=== PATIENT | male | born 1975 | race Caucasian/White ===

== ENCOUNTER 2017-05-22 20:51 | Emergency (ER) | payer BC ==
[~2017-05-22] VITALS: Ht 177.8 cm; Wt 96.0 kg
[2017-05-22] MEDS ORDERED: HYDROCODONE/ACETAMINOPHEN 5/325MG TABLET PO ONE (21:15)
[2017-05-23 01:22] VITALS: BP 124/90
== END 2017-05-23 01:23 | disposition home or self-care (01) ==
LOC: ER 20:51
DX: M54.5 Low back pain (principal); F17.200 Nicotine dependence, unspecified, uncomplicated; E11.9 Type 2 diabetes mellitus without complications; I10 Essential (primary) hypertension; W13.2XXA Fall from, out of or through roof, initial encounter; Z88.0 Allergy status to penicillin
CPT/HCPCS: 72100; 72170; 99284

== ENCOUNTER 2020-12-06 05:59 | Emergency (ER) | payer BC, OTHER ==
[~2020-12-06] VITALS: Ht 180.3 cm; Wt 120.0 kg
[2020-12-06] MEDS ORDERED: LORAZEPAM 0.5MG TABLET PO ONE (06:30)
[2020-12-06 06:49] LABS: BASOPHILS % 0.5 % (0.0-2.0); EOSINOPHILS % 0.9 % (0.0-5.0); HEMATOCRIT. 38.8 % (42.0-52.0); HEMOGLOBIN. 12.7 g/dL (14.0-18.0); LYMPHOCYTES % 8.7 % (20.0-50.0); MEAN CORPUSCULAR VOLUME 82.5 fL (80.0-94.0); MEAN PLATELET VOLUME 7.4 fl (7.4-10.4); MONOCYTES % 5.1 % (2.0-8.0); NEUTROPHILS % 84.8 % (40.0-76.0); PLATELET 331 x1000/uL (130-400); RED CELL DISTRIBUTION WIDTH 14.3 % (11.6-14.6)
[2020-12-06 06:54] LABS: CHLORIDE 108 mEq/L (98-107)
[2020-12-06] MEDS ORDERED: ENOXAPARIN 100MG/ML SYR SUBCUT ONE (07:15)
[2020-12-06 09:26] VITALS: BP 128/85
== END 2020-12-06 09:51 | disposition short-term general hospital (02) ==
LOC: ER 05:59 → CANBEDREQ 14:29
DX: I21.4 Non-ST elevation (NSTEMI) myocardial infarction (principal); E11.9 Type 2 diabetes mellitus without complications; Z98.61 Coronary angioplasty status; I10 Essential (primary) hypertension; I25.2 Old myocardial infarction; Z88.0 Allergy status to penicillin; Z20.822 Contact with and (suspected) exposure to COVID-19
CPT/HCPCS: 36415; 71045; 80053; 83880; 84484; 85025; 87426; 96372; 99291; J1650; Z7610

== ENCOUNTER 2020-12-24 10:33 | Inpatient (IN) | payer OTHER ==
[~2020-12-24] VITALS: Ht 180.3 cm; Wt 80.5 kg
[2020-12-24 11:56] LABS: BASOPHILS % 0.8 % (0.0-2.0); EOSINOPHILS % 2.3 % (0.0-5.0); HEMATOCRIT. 40.6 % (42.0-52.0); HEMOGLOBIN. 13.3 g/dL (14.0-18.0); LYMPHOCYTES % 11.5 % (20.0-50.0); MEAN CORPUSCULAR HEMOGLOBIN 27.3 pg (28.0-32.0); MEAN CORPUSCULAR VOLUME 83.4 fL (80.0-94.0); MEAN PLATELET VOLUME 7.7 fl (7.4-10.4); MONOCYTES % 5.3 % (2.0-8.0); NEUTROPHILS % 80.1 % (40.0-76.0); PLATELET 303 x1000/uL (130-400); RED BLOOD CELL COUNT 4.87 mill/uL (4.7-6.1); RED CELL DISTRIBUTION WIDTH 14.9 % (11.6-14.6)
[2020-12-24] MEDS ORDERED: ASPIRIN 81MG TABLET PO ONE (15:00)
[2020-12-24] MEDS ORDERED: ENOXAPARIN 80MG/0.8ML SYR SUBCUT ONE (15:45)
[2020-12-25 01:05] LABS: *AMPHETAMINES SCREEN URINE NEGATIVE (NEGATIVE); *BARBITURATES SCREEN URINE NEGATIVE (NEGATIVE); *BENZODIAZEPINES SCREEN URINE NEGATIVE (NEGATIVE); *COCAINE SCREEN URINE NEGATIVE (NEGATIVE); METHADONE URINE SCREEN NEGATIVE (NEGATIVE); OPIATES URINE SCREEN NEGATIVE (NEGATIVE)
[2020-12-25 01:06] LABS: CANNABINOID URINE SCREEN NEGATIVE (NEGATIVE); PHENCYCLIDINE URINE SCREEN NEGATIVE (NEGATIVE)
[2020-12-25 05:30] VITALS: BP 157/104
[2020-12-25] MEDS ORDERED: HYDR-4135 MT (05:42)
[2020-12-25] MEDS ORDERED: ASPI-1497 MT (05:42)
[2020-12-25] MEDS ORDERED: CLOP-31 MT (05:42)
[2020-12-25] MEDS ORDERED: ONDANSETRON HCL 4MG/2ML INJ IV PRN (06:15)
[2020-12-25] MEDS ORDERED: HYDROCODONE/ACETAMINOPHEN 5/325MG TABLET PO PRN (06:15)
[2020-12-25] MEDS ORDERED: MAGNESIUM/ALUMINUM HYDROXIDE/SIMETHICONE 30ML UDC PO PRN (06:15)
[2020-12-25] MEDS ORDERED: DOCUSATE SODIUM 100MG CAPSULE PO PRN (06:15)
[2020-12-25] MEDS ORDERED: CLONIDINE 0.1MG TABLET PO PRN (06:15)
[2020-12-25] MEDS ORDERED: ACETAMINOPHEN 325MG TABLET PO PRN (06:15)
[2020-12-25] MEDS ORDERED: MORPHINE SULFATE 2 MG/ML CPJ (NOT FOR IM USE) IV PRN (06:15)
[2020-12-25] MEDS: AMLODIPINE 10MG TABLET PO SCH (06:42)
[2020-12-25 08:00] VITALS: BP 155/100
[2020-12-25] MEDS: ASPIRIN 81MG TABLET PO SCH (09:28)
[2020-12-25] MEDS: CLOPIDOGREL 75MG TABLET PO SCH (09:29)
[2020-12-25] MEDS: CARVEDILOL 6.25 MG TABLET PO SCH ×2 (09:29→21:43)
[2020-12-25] MEDS ORDERED: NALOXONE HCL 0.4MG/ML VIAL IV PRN (10:45)
[2020-12-25] MEDS ORDERED: DEXTROSE 50% WATER 50ML SYRINGE IV PRN (11:00)
[2020-12-25] MEDS: BLOOD SUGAR DIAGNOSTIC STRIP TEST SCH ×3 (11:29→21:45)
[2020-12-25 12:00] VITALS: BP 146/95
[2020-12-25] MEDS: INSULIN LISPRO 100 UNITS/ML SUBCUT SCH ×3 (12:36→21:45)
[2020-12-25] MEDS: ENOXAPARIN 80MG/0.8ML SYR SUBCUT SCH ×2 (12:39→21:44)
[2020-12-25 16:00] VITALS: BP 150/95
[2020-12-25 20:30] VITALS: BP 156/109
[2020-12-25] MEDS: ATORVASTATIN CALCIUM 40MG TABLET PO SCH (21:43)
[2020-12-25] MEDS: HYDRALAZINE HCL 50MG TABLET PO SCH (21:44)
[2020-12-25 23:30] VITALS: BP 122/81
[2020-12-26 04:00] VITALS: BP 135/81
[2020-12-26] MEDS: BLOOD SUGAR DIAGNOSTIC STRIP TEST SCH ×4 (06:13→20:27)
[2020-12-26] MEDS: INSULIN LISPRO 100 UNITS/ML SUBCUT SCH ×4 (06:15→20:26)
[2020-12-26 07:54] LABS: BASOPHILS % 1.1 % (0.0-2.0); EOSINOPHILS % 3.2 % (0.0-5.0); HEMATOCRIT. 39.6 % (42.0-52.0); LYMPHOCYTES % 23.8 % (20.0-50.0); MEAN PLATELET VOLUME 7.8 fl (7.4-10.4); MONOCYTES % 8.9 % (2.0-8.0); PLATELET 269 x1000/uL (130-400); RED BLOOD CELL COUNT 4.83 mill/uL (4.7-6.1); RED CELL DISTRIBUTION WIDTH 14.9 % (11.6-14.6)
[2020-12-26 08:00] VITALS: BP 124/78
[2020-12-26 08:04] LABS: CHLORIDE 108 mEq/L (98-107)
[2020-12-26 08:15] LABS: LDL CHOLESTEROL 128 mg/dL (5-100)
[2020-12-26 08:18] LABS: HDL CHOLESTEROL 41 mg/dL (40-59)
[2020-12-26] MEDS: ASPIRIN 81MG TABLET PO SCH (08:32)
[2020-12-26] MEDS: CLOPIDOGREL 75MG TABLET PO SCH (08:33)
[2020-12-26] MEDS: HYDRALAZINE HCL 50MG TABLET PO SCH ×2 (08:33→17:21)
[2020-12-26] MEDS: CARVEDILOL 6.25 MG TABLET PO SCH ×2 (08:33→20:26)
[2020-12-26] MEDS: AMLODIPINE 10MG TABLET PO SCH (08:33)
[2020-12-26 12:00] VITALS: BP 129/83
[2020-12-26] MEDS: ENOXAPARIN 80MG/0.8ML SYR SUBCUT SCH ×2 (12:04→23:37)
[2020-12-26 16:00] VITALS: BP 138/91
[2020-12-26 20:00] VITALS: BP 126/81
[2020-12-26] MEDS: ATORVASTATIN CALCIUM 40MG TABLET PO SCH (20:25)
[2020-12-26 21:24] VITALS: BP 126/81
[2020-12-27] VITALS: BP 129/82
[2020-12-27 04:00] VITALS: BP 129/83
[2020-12-27] MEDS: BLOOD SUGAR DIAGNOSTIC STRIP TEST SCH ×3 (05:40→16:40)
[2020-12-27] MEDS: INSULIN LISPRO 100 UNITS/ML SUBCUT SCH ×3 (06:02→17:43)
[2020-12-27 08:00] VITALS: BP 125/79
[2020-12-27] MEDS ORDERED: VERAPAMIL HCL 2.5 MG/1 ML 2ML VIAL IV ONE (09:29)
[2020-12-27] MEDS ORDERED: LIDOCAINE HCL 1% 30ML VIAL (10MG/ML) ONE (09:29)
[2020-12-27] MEDS ORDERED: NICARDIPINE 100MCG/ML 10ML VIAL (CATH LAB) IV ONE (09:30)
[2020-12-27] MEDS ORDERED: IODIXANOL 320MG/ML 100 ML BOTTLE IV ONE (09:30)
[2020-12-27] MEDS ORDERED: NITROGLYCERIN 50MCG/ML 10ML VIAL (CATH LAB) IV ONE (09:30)
[2020-12-27] MEDS ORDERED: HEPARIN SODIUM 1,000 UNIT/1ML VIAL IV ONE (09:30)
[2020-12-27] MEDS: CLOPIDOGREL 75MG TABLET PO SCH (09:47)
[2020-12-27] MEDS: AMLODIPINE 10MG TABLET PO SCH (09:47)
[2020-12-27] MEDS: ASPIRIN 81MG TABLET PO SCH (09:47)
[2020-12-27] MEDS: CARVEDILOL 6.25 MG TABLET PO SCH (09:47)
[2020-12-27] MEDS: HYDRALAZINE HCL 50MG TABLET PO SCH ×2 (09:47→17:42)
[2020-12-27] MEDS ORDERED: MIDAZOLAM HCL 2 MG/2 ML VIAL ONE ×2 (09:59→10:53)
[2020-12-27] MEDS ORDERED: FENTANYL CITRATE/PF 50MCG/ML 2ML VIAL ONE (09:59)
[2020-12-27] MEDS: ENOXAPARIN 80MG/0.8ML SYR SUBCUT SCH (11:00)
[2020-12-27] MEDS ORDERED: ATROPINE SULFATE 1MG/10ML SYR IV PRN (11:45)
[2020-12-27] MEDS ORDERED: MIDAZOLAM HCL 5 MG/5 ML VIAL ONE (12:32)
[2020-12-27] MEDS ORDERED: FENTANYL CITRATE/PF 50MCG/ML 5ML VIAL ONE (12:32)
[2020-12-27 14:24] VITALS: BP 139/89
[2020-12-27 16:00] VITALS: BP 124/79
[2020-12-27 17:17] VITALS: BP 124/75
== END 2020-12-27 18:20 | disposition home or self-care (01) | DRG 280 ==
LOC: ER 10:33 → MICUSO 15:39 → EDBEDREQ 15:45 → EDBEDREQTM 15:45 → 7EST 12-25 04:06
PROVIDERS: ADMIT Hospitalist; ATTEND Hospitalist
PROC: 4A023N7 Measurement of Cardiac Sampling and Pressure, Left Heart, Percutaneous Approach (ICD-10-PCS; principal; 2020-12-27)
PROC: B211YZZ Fluoroscopy of Multiple Coronary Arteries using Other Contrast (ICD-10-PCS; 2020-12-27)
PROC: 4A033BC Measurement of Arterial Pressure, Coronary, Percutaneous Approach (ICD-10-PCS; 2020-12-27)
DX: I21.4 Non-ST elevation (NSTEMI) myocardial infarction (principal); I50.23 Acute on chronic systolic (congestive) heart failure; I13.0 Hypertensive heart and chronic kidney disease with heart failure and stage 1 through stage 4 chronic kidney disease, or unspecified chronic kidney disease; N17.9 Acute kidney failure, unspecified; I42.9 Cardiomyopathy, unspecified; E11.22 Type 2 diabetes mellitus with diabetic chronic kidney disease; E87.5 Hyperkalemia; E78.5 Hyperlipidemia, unspecified; Z20.822 Contact with and (suspected) exposure to COVID-19; F41.9 Anxiety disorder, unspecified; I16.0 Hypertensive urgency; N18.9 Chronic kidney disease, unspecified; I25.119 Atherosclerotic heart disease of native coronary artery with unspecified angina pectoris; I45.10 Unspecified right bundle-branch block; Z82.49 Family history of ischemic heart disease and other diseases of the circulatory system; Z91.14 Patient's other noncompliance with medication regimen; Z95.5 Presence of coronary angioplasty implant and graft; Z79.82 Long term (current) use of aspirin; Z79.899 Other long term (current) drug therapy
CPT/HCPCS: 36415; 80048; 80053; 80061; 80305; 82962; 83036; 84484; 85025; 85347; 87426; 93306; 93458; 93571; 99291; C1769; C1887; C1893; J1644; J1650; J1815; J2250; J2270; J3010; J3490; Q9967

== ENCOUNTER 2021-08-18 04:53 | Inpatient (IN) | payer OTHER ==
[~2021-08-18] VITALS: Ht 177.8 cm; Wt 89.8 kg
[~2021-08-18 04:53] MED LIST: ASPI-1497 MT; CLOP-31 MT; HYDR-4135 MT
[2021-08-18 06:01] LABS: BASOPHILS % 0.8 % (0.0-2.0); EOSINOPHILS % 1.6 % (0.0-5.0); HEMATOCRIT. 35.2 % (42.0-52.0); HEMOGLOBIN. 11.6 g/dL (14.0-18.0); LYMPHOCYTES % 18.3 % (20.0-50.0); MEAN CORPUSCULAR HEMOGLOBIN 27.7 pg (28.0-32.0); MEAN CORPUSCULAR VOLUME 84.3 fL (80.0-94.0); MEAN PLATELET VOLUME 6.8 fl (7.4-10.4); MONOCYTES % 6.7 % (2.0-8.0); NEUTROPHILS % 72.6 % (40.0-76.0); PLATELET 319 x1000/uL (130-400); RED BLOOD CELL COUNT 4.18 mill/uL (4.7-6.1); RED CELL DISTRIBUTION WIDTH 13.3 % (11.6-14.6)
[2021-08-18 06:22] LABS: CHLORIDE 111 mEq/L (98-107)
[2021-08-18] MEDS ORDERED: DEXTROSE 50% WATER 50ML SYRINGE IV ONE (06:45)
[2021-08-18] MEDS ORDERED: ENOXAPARIN 80MG/0.8ML SYR SUBCUT ONE (06:45)
[2021-08-18] MEDS ORDERED: HYDRALAZINE HCL 100MG TABLET PO SCH (11:45)
[2021-08-18 13:40] VITALS: BP 177/97
[2021-08-18] MEDS ORDERED: GUAIFENESIN 200MG/10ML SUGAR FREE UDC PO PRN (14:15)
[2021-08-18] MEDS ORDERED: DOCUSATE SODIUM 100MG CAPSULE PO PRN (14:15)
[2021-08-18] MEDS ORDERED: MAGNESIUM/ALUMINUM HYDROXIDE/SIMETHICONE 30ML UDC PO PRN (14:15)
[2021-08-18] MEDS ORDERED: CLONIDINE 0.1MG TABLET PO PRN (14:15)
[2021-08-18] MEDS ORDERED: ONDANSETRON HCL 4MG/2ML INJ IV PRN (14:15)
[2021-08-18] MEDS ORDERED: HYDROCODONE/ACETAMINOPHEN 5/325MG TABLET PO PRN (14:15)
[2021-08-18] MEDS ORDERED: ACETAMINOPHEN 325MG TABLET PO PRN (14:15)
[2021-08-18] MEDS ORDERED: MORPHINE SULFATE 2 MG/ML CPJ (NOT FOR IM USE) IV PRN (14:15)
[2021-08-18 14:50] VITALS: BP 147/94
[2021-08-18] MEDS: AMLODIPINE 10MG TABLET PO SCH (14:50)
[2021-08-18] MEDS ORDERED: DEXTROSE 50% WATER 50ML SYRINGE IV PRN (15:30)
[2021-08-18] MEDS ORDERED: NALOXONE HCL 0.4MG/ML VIAL IV PRN (15:45)
[2021-08-18 16:00] VITALS: BP 156/94
[2021-08-18] MEDS: HYDRALAZINE HCL 50MG TABLET PO SCH (17:15)
[2021-08-18] MEDS ORDERED: CARV25TA47 MT (17:17)
[2021-08-18] MEDS ORDERED: ISOS30TA91 MT (17:18)
[2021-08-18] MEDS: INSULIN LISPRO 100 UNITS/ML SUBCUT SCH ×2 (17:33→20:45)
[2021-08-18] MEDS: BLOOD SUGAR DIAGNOSTIC STRIP TEST SCH ×2 (17:33→20:45)
[2021-08-18 20:00] VITALS: BP 152/78
[2021-08-18 20:26] LABS: PROTHROMBIN TIME 11.2 sec (9.6-11.0)
[2021-08-18] MEDS ORDERED: ATORVASTATIN CALCIUM 40MG TABLET PO SCH (21:00)
[2021-08-18] MEDS: ENOXAPARIN 100MG/ML SYR SUBCUT SCH (22:00)
[2021-08-19] VITALS: BP 143/80
[2021-08-19 04:00] VITALS: BP 154/89
[2021-08-19] MEDS: BLOOD SUGAR DIAGNOSTIC STRIP TEST SCH ×2 (05:58→12:56)
[2021-08-19 06:19] LABS: BASOPHILS % 0.8 % (0.0-2.0); EOSINOPHILS % 2.9 % (0.0-5.0); HEMOGLOBIN. 11.9 g/dL (14.0-18.0); LYMPHOCYTES % 32.4 % (20.0-50.0); MEAN CORPUSCULAR HEMOGLOBIN 27.5 pg (28.0-32.0); MEAN CORPUSCULAR VOLUME 83.2 fL (80.0-94.0); MEAN PLATELET VOLUME 7.6 fl (7.4-10.4); MONOCYTES % 8.4 % (2.0-8.0); NEUTROPHILS % 55.5 % (40.0-76.0); PLATELET 328 x1000/uL (130-400); RED BLOOD CELL COUNT 4.32 mill/uL (4.7-6.1); RED CELL DISTRIBUTION WIDTH 13.5 % (11.6-14.6)
[2021-08-19 06:40] LABS: CHLORIDE 108 mEq/L (98-107)
[2021-08-19 06:52] LABS: HDL CHOLESTEROL 35 mg/dL (40-59); LDL CHOLESTEROL 104 mg/dL (5-100)
[2021-08-19] MEDS: INSULIN LISPRO 100 UNITS/ML SUBCUT SCH ×2 (07:50→12:56)
[2021-08-19 08:00] VITALS: BP 147/89
[2021-08-19] MEDS ORDERED: ISOSORBIDE MONONITRATE 30MG TABLET SR 24HR PO SCH (09:00)
[2021-08-19] MEDS ORDERED: CLOPIDOGREL 75MG TABLET PO SCH (09:00)
[2021-08-19] MEDS ORDERED: ASPIRIN 81MG EC TABLET PO SCH (09:00)
[2021-08-19] MEDS: HYDRALAZINE HCL 50MG TABLET PO SCH (09:41)
[2021-08-19] MEDS: AMLODIPINE 10MG TABLET PO SCH (09:42)
[2021-08-19] MEDS: ENOXAPARIN 100MG/ML SYR SUBCUT SCH (09:43)
[2021-08-19 11:25] LABS: *AMPHETAMINES SCREEN URINE NEGATIVE (NEGATIVE); *BARBITURATES SCREEN URINE NEGATIVE (NEGATIVE); *BENZODIAZEPINES SCREEN URINE NEGATIVE (NEGATIVE); *COCAINE SCREEN URINE NEGATIVE (NEGATIVE); CANNABINOID URINE SCREEN NEGATIVE (NEGATIVE); METHADONE URINE SCREEN NEGATIVE (NEGATIVE); OPIATES URINE SCREEN NEGATIVE (NEGATIVE); PHENCYCLIDINE URINE SCREEN NEGATIVE (NEGATIVE)
[2021-08-19 12:00] VITALS: BP 143/77
[2021-08-19 13:13] VITALS: BP 143/77
[2021-08-19] MEDS ORDERED: ENOXAPARIN 100MG/ML SYR SUBCUT SCH (21:00)
== END 2021-08-19 14:50 | disposition home or self-care (01) | DRG 281 ==
LOC: ER 04:53 → 6WST 10:13 → EDBEDREQTM 10:20 → EDBEDREQ 10:20 → ENRESERV 10:37
PROVIDERS: ADMIT Hospitalist; ATTEND Hospitalist
DX: I21.4 Non-ST elevation (NSTEMI) myocardial infarction (principal); I13.0 Hypertensive heart and chronic kidney disease with heart failure and stage 1 through stage 4 chronic kidney disease, or unspecified chronic kidney disease; I50.22 Chronic systolic (congestive) heart failure; N17.9 Acute kidney failure, unspecified; I25.10 Atherosclerotic heart disease of native coronary artery without angina pectoris; E11.22 Type 2 diabetes mellitus with diabetic chronic kidney disease; N18.9 Chronic kidney disease, unspecified; Z20.822 Contact with and (suspected) exposure to COVID-19; E11.649 Type 2 diabetes mellitus with hypoglycemia without coma; I16.0 Hypertensive urgency; F41.9 Anxiety disorder, unspecified; I45.10 Unspecified right bundle-branch block; Z95.5 Presence of coronary angioplasty implant and graft; Z88.0 Allergy status to penicillin; Z79.899 Other long term (current) drug therapy; Z79.82 Long term (current) use of aspirin; Z82.49 Family history of ischemic heart disease and other diseases of the circulatory system
CPT/HCPCS: 36415; 71045; 80053; 80061; 80305; 82962; 83036; 83880; 84484; 85025; 87426; 93005; 93306; 93880; 93970; 99285; C9803; J1650; J1815

== ENCOUNTER 2023-12-14 22:56 | Emergency (ER) | payer OTHER ==
[~2023-12-14] VITALS: Ht 175.3 cm; Wt 79.0 kg
[~2023-12-14 22:56] MED LIST changes: +CARV25TA47 MT; -HYDR-4135 MT; +HYDR50TA40 MT; +ISOS30TA91 MT
[2023-12-14 23:00] VITALS: TEMP 98; O2SAT 99
[2023-12-14 23:35] LABS: CARBON DIOXIDE 28 mEq/L (21-32); CHLORIDE 104 mEq/L (98-107); POTASSIUM 3.7 mEq/L (3.5-5.1); SODIUM 143 mEq/L (136-145)
[2023-12-14 23:36] LABS: CALCIUM 9.7 mg/dL (8.7-10.4)
[2023-12-14 23:41] LABS: GLUCOSE 104 mg/dL (70-105); UREA NITROGEN BLOOD 39 mg/dL (9-23)
[2023-12-14 23:43] LABS: ALANINE AMINOTRANSFERASE < 7 IU/L (10-49); ALBUMIN 4.4 g/dL (3.2-4.8); ASPARTATE AMINOTRANSFERASE 18 IU/L (<34); BILIRUBIN DIRECT 0.1 mg/dL (<=3.0); BILIRUBIN TOTAL < 0.2 mg/dL (0.1-1.0); PROTEIN TOTAL 7.8 g/dL (6.0-8.3)
[2023-12-14 23:45] LABS: PARTIAL THROMBOPLASTIN TIME 33.9 sec (23.4-31.0); PROTHROMBIN TIME 10.7 sec (9.6-11.0)
[2023-12-14 23:47] LABS: BASOPHILS % 1.4 % (0.0-2.0); EOSINOPHILS % 3.2 % (0.0-5.0); ETHANOL BLOOD < 10 mg/dL (<10); HEMATOCRIT. 35.3 % (42.0-52.0); HEMOGLOBIN. 11.7 g/dL (14.0-18.0); LYMPHOCYTES % 23.5 % (20.0-50.0); MEAN CORPUSCULAR HEMOGLOBIN 28.7 pg (28.0-32.0); MEAN CORPUSCULAR HGB CONC 33.1 g/dL (31.0-37.0); MEAN CORPUSCULAR VOLUME 86.8 fL (80.0-94.0); MEAN PLATELET VOLUME 7.2 fl (7.4-10.4); MONOCYTES % 11.1 % (2.0-8.0); NEUTROPHILS % 60.8 % (40.0-76.0); PLATELET 289 x1000/uL (130-400); RED BLOOD CELL COUNT 4.06 mill/uL (4.7-6.1); RED CELL DISTRIBUTION WIDTH 16.1 % (11.6-14.6); WHITE BLOOD COUNT 6.8 x1000/uL (4.5-11.0)
[2023-12-15 00:09] LABS: TROPONIN I HIGH SENSITIVITY 212 ng/L (3.0-53)
[2023-12-15 00:10] LABS: CREATININE 5.8 mg/dL (0.6-1.3)
[2023-12-15] MEDS: ASPIRIN 325MG EC TABLET PO NR (00:45)
[2023-12-15 01:42] LABS: TROPONIN I HIGH SENSITIVITY 190 ng/L (3.0-53)
[2023-12-15 03:43] VITALS: BP 126/56; PULSE 76; RESP 18; O2SAT 98
== END 2023-12-15 03:50 | disposition short-term general hospital (02) ==
LOC: ER 23:15
DX: I12.0 Hypertensive chronic kidney disease with stage 5 chronic kidney disease or end stage renal disease (principal); E11.22 Type 2 diabetes mellitus with diabetic chronic kidney disease; N18.6 End stage renal disease; Z00.00 Encounter for general adult medical examination without abnormal findings; I25.2 Old myocardial infarction; Z88.0 Allergy status to penicillin; Z79.899 Other long term (current) drug therapy
CPT/HCPCS: 36415; 71045; 80048; 80076; 80320; 83880; 84484; 85025; 93005; 99285; G0480